=== PATIENT | female | born 1985 ===

== ENCOUNTER 2018-04-15 15:39 | Emergency (ER) | payer SELFPAY ==
[2018-04-15 15:41] VITALS: BP 96/60; PULSE 100; RESP 16; TEMP 99; O2SAT 98
--- NOTE | 2018-04-15 16:54 | ED PDOC ---
HPI: Psych/Substance Abuse Chief Complaint (Provider): Evaluation - Denies SI/HI History Per: Patient History/Exam Limitations: no limitations Additional Complaint(s): 33 yo female with history of PTSD and processing delays presents for evaluation. PT states police came to her home because her father, who lives in [place], reported that patient was suicidal. PT denies SI. <Desiree Feng - Last Filed: 04/15/18 17:12> <Adelina Diamond - Last Filed: 04/19/18 17:03> Time Seen by Provider: 04/15/18 15:54 Chief Complaint (Nursing): Psychiatric Evaluation Past Medical History Reviewed: Historical Data, Nursing Documentation, Vital Signs Vital Signs: Last Vital Signs Temp 99.0 F 04/15/18 15:40 Pulse 100 H 04/15/18 15:40 Resp 16 04/15/18 15:40 BP 96/60 L 04/15/18 15:40 Pulse Ox 98 04/15/18 15:40 - Medical History PMH: No Chronic Diseases, Post Traumatic Stress Disorder ("severe") - Surgical History Surgical History: No Surg Hx - Family History Family History: States: No Known Family Hx - Living Arrangements Living Arrangements: With Family - Social History Current smoker - smoking cessation education provided: No <Desiree Feng - Last Filed: 04/15/18 17:12> Vital Signs: Last Vital Signs Temp 99.0 F 04/15/18 15:40 Pulse 100 H 04/15/18 15:40 Resp 16 04/15/18 15:40 BP 96/60 L 04/15/18 15:40 Pulse Ox 98 04/15/18 17:13 <Adelina Diamond - Last Filed: 04/19/18 17:03> - Allergies Allergies/Adverse Reactions: Allergies Allergy/AdvReac Type Severity Reaction Status Date / Time No Known Allergies Allergy Verified 04/15/18 15:40 Review of Systems ROS Statement: Except As Marked, All Systems Reviewed And Found Negative Constitutional: Negative for: Fever, Chills ENT: Negative for: Ear Pain Respiratory: Negative for: Cough, Shortness of Breath Gastrointestinal: Negative for: Abdominal Pain Psych: Positive for: Other. Negative for: Psychosis, Suicidal ideation, Withdrawal <Desiree Feng - Last Filed: 04/15/18 17:12> Physical Exam - Reviewed Nursing Documentation Reviewed: Yes Vital Signs Reviewed: Yes - Physical Exam Appears: Positive for: Well, Non-toxic, No Acute Distress Head Exam: Positive for: ATRAUMATIC, NORMAL INSPECTION, NORMOCEPHALIC Skin: Positive for: Normal Color, Warm, DRY Eye Exam: Positive for: Normal appearance ENT: Positive for: Normal ENT Inspection Neck: Positive for: Normal, Painless ROM Cardiovascular/Chest: Positive for: Regular Rate, Rhythm Respiratory: Positive for: Normal Breath Sounds. Negative for: Accessory Muscle Use, Respiratory Distress Back: Positive for: Normal Inspection Extremity: Positive for: Normal ROM Neurologic/Psych: Positive for: Alert, Oriented <Desiree Feng - Last Filed: 04/15/18 17:12> - ECG O2 Sat by Pulse Oximetry: 98 <Desiree Feng - Last Filed: 04/15/18 17:12> Medical Decision Making Medical Decision Making: Crisis evaluation completed. <Desiree Feng - Last Filed: 04/15/18 17:12> Disposition - Disposition Disposition: Routine/Home Disposition Time: 17:13 <Desiree Feng - Last Filed: 04/15/18 17:12> <Adelina Diamond - Last Filed: 04/19/18 17:03> - Clinical Impression Clinical Impression: PTSD (post-traumatic stress disorder) - Disposition Referrals: Gt Andrews MD [Primary Care Provider] - Condition: GOOD Instructions: Post-traumatic Stress Disorder Forms: [facility] (Brazilian) Addendum Addendum: 04/19/18 17:03 Reviewed PA chart and agree with PA assessment. <Adelina Diamond - Last Filed: 04/19/18 17:03>
== END 2018-04-15 17:28 | disposition home or self-care (01) ==
LOC: H.ER 15:39
DX: F43.10 Post-traumatic stress disorder, unspecified (principal)

== ENCOUNTER 2018-05-17 19:22 | Emergency (ER) | payer SELFPAY ==
[2018-05-17 19:40] VITALS: TEMP 99.2
--- NOTE | 2018-05-17 22:38 | ED PDOC ---
HPI: Psych/Substance Abuse Time Seen by Provider: 05/17/18 22:30 Chief Complaint (Nursing): Psychiatric Evaluation Chief Complaint (Provider): crisis eval History Per: Patient History/Exam Limitations: no limitations Onset/Duration Of Symptoms: Days Additional Complaint(s): 33 y/o female history of PTSD, ADHD, anxiety, depression, amnesia presents for crisis eval. Patient states she has not been able to afford her medications and she feels stressed and overwhlemed and "needs help". Denies suicidal/homicidal ideations, hallucinations, acute physical complaints. Past Medical History Reviewed: Historical Data, Nursing Documentation, Vital Signs Vital Signs: Last Vital Signs Temp 99.2 F 05/17/18 19:37 Pulse 78 05/17/18 19:37 Resp 18 05/17/18 19:37 BP 142/87 05/17/18 19:37 Pulse Ox 99 05/17/18 19:37 - Medical History PMH: Anxiety, Depression, Post Traumatic Stress Disorder ("severe") Denies: Diabetes, Hepatitis, HIV, HTN, Seizures, Sexually Transmitted Disease - Surgical History Surgical History: No Surg Hx - Family History Family History: States: No Known Family Hx - Allergies Allergies/Adverse Reactions: Allergies Allergy/AdvReac Type Severity Reaction Status Date / Time No Known Allergies Allergy Verified 05/17/18 19:37 Review of Systems ROS Statement: Except As Marked, All Systems Reviewed And Found Negative Psych: Positive for: Anxiety Physical Exam - Reviewed Nursing Documentation Reviewed: Yes Vital Signs Reviewed: Yes - Physical Exam Appears: Positive for: Well, Non-toxic, Uncomfortable (anxious) Head Exam: Positive for: ATRAUMATIC, NORMAL INSPECTION, NORMOCEPHALIC Skin: Positive for: Normal Color Eye Exam: Positive for: Normal appearance ENT: Positive for: Normal ENT Inspection Cardiovascular/Chest: Positive for: Regular Rate, Rhythm Respiratory: Positive for: Normal Breath Sounds Gastrointestinal/Abdominal: Positive for: Normal Exam Back: Positive for: Normal Inspection Extremity: Positive for: Normal ROM Neurologic/Psych: Positive for: Alert, Oriented (x3) - Laboratory Results Result Diagrams: 05/17/18 23:30 05/17/18 23:30 - ECG O2 Sat by Pulse Oximetry: 99 - Progress ED Course And Treament: labs, urine, crisis eval Patient evaluated by area field worker; does not meet criteria for admission at this time as per Dr. Cotton Patient advised to f/up outpatient services Return precautions given Disposition - Clinical Impression Clinical Impression: Anxiety - Patient ED Disposition Is Patient to be Admitted: No Counseled Patient/Family Regarding: Studies Performed, Diagnosis, Need For Followup - Disposition Disposition: Routine/Home Disposition Time: 00:53 Condition: STABLE Instructions: Anxiety, Adult (DC)
[2018-05-17 23:30] LABS: BASO # 0.1 K/uL (0.0-0.2); BASO % 1.2 % (0.0-2.0); EOS # 0.1 K/uL (0.0-0.7); EOS % 0.7 % (0.0-4.0); HEMOGLOBIN 13.3 g/dL (12.0-16.0); LYMPH # 3.3 K/uL (1.0-4.3); LYMPH % 32.3 % (20.0-40.0); MEAN CORPUSCULAR HEMOGLOBIN 29.3 pg (27.0-31.0); MEAN CORPUSCULAR HGB CONC 33.3 g/dL (33.0-37.0); MEAN PLATELET VOLUME 7.2 fl (7.2-11.7); MONO # 0.6 K/uL (0.0-0.8); NEUT % 59.8 % (50.0-75.0); NRBC % 0.1 % (0.0-0.0); RBC 4.55 Mil/uL (3.80-5.20); RED CELL DISTRIBUTION WIDTH 12.9 % (11.5-14.5); WHITE BLOOD COUNT 10.1 K/uL (4.8-10.8)
[2018-05-17 23:40] LABS: ALB/GLOB RATIO 1.4 (1.0-2.1); ALBUMIN 4.4 g/dL (3.5-5.0); ALT/SGPT 29 U/L (9-52); AST/SGOT 22 U/L (14-36); BLOOD UREA NITROGEN 6 mg/dl (7-17); CALCIUM 9.8 mg/dL (8.4-10.2); GFR NON-AFRICAN AMERICAN > 60
[2018-05-17 23:57] LABS: SQUAMOUS EPITHIAL 2 /hpf (0-5); URINE BACTERIA RARE (<OCC); URINE BILIRUBIN NEGATIVE (NEGATIVE); URINE BLOOD SMALL (NEGATIVE); URINE CLARITY SLIGHTY-CLOUDY (Clear); URINE COLOR STRAW (YELLOW); URINE GLUCOSE (UA) NEG (Normal); URINE LEUKOCYTE ESTERASE NEG Leu/uL (Negative); URINE PROTEIN NEGATIVE (NEGATIVE); URINE UROBILINOGEN 0.2-1.0 mg/dL (0.2-1.0)
[2018-05-18 00:15] LABS: BENZODIAZEPINES, UR NEGATIVE (NEGATIVE)
[2018-05-18 00:18] LABS: BARBITURATES, UR NEGATIVE (NEGATIVE); OPIATES, UR NEGATIVE (NEGATIVE); PHENCYCLIDINE, UR NEGATIVE (NEGATIVE)
[2018-05-18 01:38] VITALS: BP 130/90; PULSE 90; RESP 20; O2SAT 100
== END 2018-05-18 01:47 | disposition home or self-care (01) ==
LOC: H.ER 19:22
DX: F41.9 Anxiety disorder, unspecified (principal); F32.9 Major depressive disorder, single episode, unspecified; F43.10 Post-traumatic stress disorder, unspecified
CPT/HCPCS: 80053; 81003; 81025; 85025; 99283; G0480

== ENCOUNTER 2018-05-19 23:01 | Emergency (ER) | payer SELFPAY ==
[2018-05-19 23:11] VITALS: O2SAT 98
--- NOTE | 2018-05-20 02:23 | ED PDOC ---
HPI: Psych/Substance Abuse Time Seen by Provider: 05/19/18 23:16 Chief Complaint (Nursing): Psychiatric Evaluation Chief Complaint (Provider): Psychiatric Evaluation History Per: Patient, Family (at bedside) History/Exam Limitations: no limitations Additional Complaint(s): Patient is a 33 y/o female who was brought to the ED via BLS for psychiatric evaluation. Patient reports that she feels overwhelmed with deadlines but will not elaborate. Patient notes her father is "driving her crazy" at home. Patient had expressed suicidal ideation to EMS but denies to provider. She denies auditory or visual hallucinations and homicidal ideation. She has no physical complaints at this time. PMD: Abdifatah Andrews Past Medical History Reviewed: Historical Data, Nursing Documentation, Vital Signs Vital Signs: Last Vital Signs Temp 98.1 F 05/19/18 23:02 Pulse 101 H 05/19/18 23:02 Resp 16 05/19/18 23:02 BP 136/89 05/19/18 23:02 Pulse Ox 98 05/19/18 23:02 - Medical History PMH: Anxiety, Depression, Post Traumatic Stress Disorder ("severe") Other PMH: ADHD, Cognitive Delay, Herniated disc - Surgical History Other surgeries: [place] tooth extraction - Family History Family History: States: Unknown Family Hx - Allergies Allergies/Adverse Reactions: Allergies Allergy/AdvReac Type Severity Reaction Status Date / Time No Known Allergies Allergy Verified 05/19/18 23:02 Review of Systems ROS Statement: Except As Marked, All Systems Reviewed And Found Negative Psych: Positive for: Anxiety, Depression, Suicidal ideation (possible) Physical Exam - Reviewed Nursing Documentation Reviewed: Yes Vital Signs Reviewed: Yes - Physical Exam Comments: GENERAL APPEARANCE: Patient is awake, alert, oriented x 3, in no acute distress. Patient has tangent thoughts. SKIN: Warm, dry; (-) cyanosis ENMT: Mucous membranes moist. Airway patent: (-) stridor. NECK: Supple, FROM HEART AND CARDIOVASCULAR: (-) irregularity CHEST AND RESPIRATORY: (-) rales, (-) rhonchi, (-) wheezes; breath sounds equal. Respirations even and nonlabored. ABDOMEN: Soft, (-) distention, (-) tenderness, (-) guarding. NEURO AND PSYCH: Mental status as above. Affect: Hyperactive. Pupils equal and reactive; EOMI; (-) facial asymmetry; Gait: steady. Speech: clear. - ECG O2 Sat by Pulse Oximetry: 98 (RA) Pulse Ox Interpretation: Normal Medical Decision Making Medical Decision Making: Time: 23:15 Impression: Psychiatric evaluation Initial Plan: [facility] evwv 1:1 observation 214 Repeat HR: 87 Per crisis evaluation, patient to be discharged per Dr Londono with the diagnosis of Schizophrenia. On re-evaluation, patient reports improvement of symptoms. On exam, patient remains AAOx3, in no acute distress. Lungs clear to auscultation, cardiac RRR, repeat neuro exam shows no focal findings. VSS, stable for discharge. Lab/Diagnostic results d/w the patient in great detail. Diagnosis of schizophrenia d/w the patient. Based on history, exam and diagnostic results, plan will be for outpatient follow up as directed by [facility]. Patient instructed to follow-up with pmd / referral provided / the clinic in 1- 2 days without fail. Return to the emergency room at any time for any new or worsening symptoms. Patient states she fully agrees with and understands discharge instructions. States that she agrees with the plan and disposition. Verbalized and repeated discharge instructions and plan. I have given the patient opportunity to ask any additional questions. Scribe Attestation: Documented by Louis Steven acting as a scribe for Adelina Jimenez PA-C. Provider Scribe Attestation: All medical record entries made by the Scribe were at my direction and personally dictated by me. I have reviewed the chart and agree that the record a ccurately reflects my personal performance of the history, physical exam, medical decision making, and the department course for this patient. I have also personally directed, reviewed, and agree with the discharge instructions and disposition. Disposition - Clinical Impression Clinical Impression: Schizophrenia - Patient ED Disposition Is Patient to be Admitted: No Counseled Patient/Family Regarding: Studies Performed, Diagnosis, Need For Followup - Disposition Referrals: [facility] [Outside] Disposition: Routine/Home Disposition Time: 02:25 Condition: STABLE Additional Instructions: The emergency medical care you received today was directed towards the acute presenting symptoms. If you were prescribed any medication, please fill it and give as directed. It may take several days for your symptoms to resolve. Return to the Emergency Department at any time if symptoms worsen, do not improve, or if any other problems arise. Please contact your doctor in 2 days for re-evaluation and follow up / or call one of the physicians/clinics you have been referred to that are listed on the Patient Visit Information form that is included in your discharge packet. Bring any paperwork you were given at discharge with you along with any medications to your follow up visit. Our treatment cannot replace ongoing medical care by a primary care provider (PCP) outside of the emergency department. Instructions: Schizophrenia Forms: [employer] (Belizean) Print Language: PORTUGUESE - POA Present On Arrival: None
--- NOTE | 2018-05-20 02:24 | ED PDOC ---
HPI: Psych/Substance Abuse Time Seen by Provider: 05/19/18 23:16 Chief Complaint (Nursing): Psychiatric Evaluation Chief Complaint (Provider): Psychiatric Evaluation History Per: Patient History/Exam Limitations: no limitations Additional Complaint(s): Patient is a 33 y/o female who was brought to the ED via BLS for psychiatric evaluation. Patient reports that she feels overwhelmed with deadlines but will not elaborate. Patient notes her father is "driving her crazy" at home. Patient had expressed suicidal ideation to EMS but denies to provider. She denies auditory or visual hallucinations and homicidal ideation. She has no physical complaints at this time. PMD: Abdifatah Andrews Past Medical History Vital Signs: Last Vital Signs Temp 98.1 F 05/19/18 23:02 Pulse 101 H 05/19/18 23:02 Resp 16 05/19/18 23:02 BP 136/89 05/19/18 23:02 Pulse Ox 98 05/19/18 23:02 - Medical History PMH: Anxiety, Depression, Post Traumatic Stress Disorder ("severe") Denies: Diabetes, Hepatitis, HIV, HTN, Seizures, Sexually Transmitted Disease - Allergies Allergies/Adverse Reactions: Allergies Allergy/AdvReac Type Severity Reaction Status Date / Time No Known Allergies Allergy Verified 05/19/18 23:02 - ECG O2 Sat by Pulse Oximetry: 98 Disposition - Disposition Forms: [facility] ([place]an)
[2018-05-20 02:39] VITALS: BP 121/65; PULSE 87; RESP 18; TEMP 97.9
== END 2018-05-20 03:05 | disposition home or self-care (01) ==
LOC: H.ER 23:01
DX: F20.9 Schizophrenia, unspecified (principal); Z86.59 Personal history of other mental and behavioral disorders; Z00.8 Encounter for other general examination; F43.10 Post-traumatic stress disorder, unspecified; F90.9 Attention-deficit hyperactivity disorder, unspecified type